=== PATIENT | female | born 1970 | race Asian ===

== ENCOUNTER 2022-08-08 11:30 | Inpatient (IN) | payer OTHER ==
[2022-08-08] MEDS ORDERED: SODIUM CHLORIDE 1,000 ML IV ONE (11:57)
[2022-08-08 12:58] LABS: BILIRUBIN,TOTAL 0.6 mg/dl (0.2-1); CALCIUM 8.8 mg/dl (8.5-10); CREATININE 0.7 mg/dl (0.55-1.3); TOT PROT 6.3 g/dl (6.4-8.2)
[2022-08-08 13:00] LABS: HEMATOCRIT 32.1 % (32.4-45.2); HEMOGLOBIN 11.4 G/dL (10.7-15.3); MCH 32.1 pg (25.7-33.7); MCHC 35.5 g/dl (32.0-36.0); MEAN CELL VOLUME 90.3 fl (80-96); MEAN PLT VOLUME 9.4 fl (7.5-11.1); PLATELET COUNT 200.1 10^3/uL (134-434); RBC 3.55 10^6/uL (3.60-5.2); RDW 13.6 % (11.6-15.6); WHITE BLOOD COUNT 5.2 10^3/uL (4.0-10.8)
[2022-08-08 14:17] LABS: PLATELET ESTIMATE ADEQUATE
[2022-08-08 14:21] LABS: EPITHELIAL CELLS FEW /hpf
[2022-08-08 15:34] LABS: CALCIUM 7.9 mg/dl (8.5-10); CREATININE 0.6 mg/dl (0.55-1.3)
[2022-08-08] MEDS ORDERED: MECLIZINE HCL 25 MG TABLET (FP) PO ONE (18:54)
[2022-08-08] MEDS ORDERED: MECLIZINE HCL 25 MG TABLET (FP) ONE (19:20)
[2022-08-08 22:23] VITALS: BMI 22.3
[2022-08-08] MEDS ORDERED: ACETAMINOPHEN 325 MG TABLET (FP) PO PRN (22:39)
[2022-08-08] MEDS ORDERED: ONDANSETRON 4 MG/2 ML VIAL IVPUSH PRN (22:44)
[2022-08-08] MEDS ORDERED: SODIUM CHLORIDE 1,000 ML IV SCH (22:45)
[2022-08-08 22:50] LABS: ERYTHROCYTE SEDIMENTATION RATE 88 mm/hr (0-30)
[2022-08-09 08:28] LABS: HEMATOCRIT 29.5 % (32.4-45.2); HEMOGLOBIN 10.4 G/dL (10.7-15.3); MCH 32.1 pg (25.7-33.7); MCHC 35.4 g/dl (32.0-36.0); MEAN CELL VOLUME 90.9 fl (80-96); MEAN PLT VOLUME 8.8 fl (7.5-11.1); PLATELET COUNT 227.3 10^3/uL (134-434); RBC 3.25 10^6/uL (3.60-5.2); RDW 13.6 % (11.6-15.6)
[2022-08-09 08:34] LABS: CALCIUM 8.4 mg/dl (8.5-10); CREATININE 0.6 mg/dl (0.55-1.3); MAGNESIUM 1.9 mg/dL (1.8-2.4); PHOSPHOROUS 3.1 mg/dl (2.5-4.9)
[2022-08-09 08:44] LABS: ACTIVATED PTT 31.5 SECONDS (25.2-36.5); INR 1.11 (0.83-1.09); PROTHROMBIN TIME (PATIENT) 12.8 SEC (9.7-13.0)
[2022-08-09] MEDS: ENOXAPARIN NA (PORCINE) 40 MG/0.4 ML DISP.SYRIN SQ SCH (09:44)
[2022-08-09] MEDS ORDERED: ROSUVASTATIN CA 40 MG TABLET PO ONE (10:17)
[2022-08-09] MEDS: CEFTRIAXONE 1 GM in DEXTROSE 5%-WATER - 50 ML IVPB SCH (10:50)
[2022-08-09] MEDS: ASPIRIN 81 MG CHEWABLE TABLETS PO SCH (10:50)
[2022-08-09 14:43] LABS: N-TERMINAL BNP 343.9 pg/ml (5-125)
[2022-08-10] MEDS: CEFTRIAXONE 1 GM in DEXTROSE 5%-WATER - 50 ML IVPB SCH (09:13)
[2022-08-10] MEDS: ENOXAPARIN NA (PORCINE) 40 MG/0.4 ML DISP.SYRIN SQ SCH (09:14)
[2022-08-10] MEDS: ASPIRIN 81 MG CHEWABLE TABLETS PO SCH (09:14)
[2022-08-10 10:49] VITALS: BP 100/60; PULSE 69; RESP 18; TEMP 98.1
[2022-08-10] MEDS ORDERED: ROSUVASTATIN CA 40 MG TABLET PO SCH (22:00)
== END 2022-08-10 11:45 | disposition home or self-care (01) | DRG 866 ==
LOC: FER 11:30 → FM/S 18:35
PROVIDERS: ADMIT Internal Medicine
DX: B34.9 Viral infection, unspecified (principal); R11.2 Nausea with vomiting, unspecified; R26.89 Other abnormalities of gait and mobility; F07.81 Postconcussional syndrome
CPT/HCPCS: 0241U-QW; 36415; 70450-TC; 70551-TC; 71045-TC-FY; 80048; 80053; 80061; 81003; 81015; 82607; 83735; 83880; 84100; 84439; 84443; 84484; 85027; 85610; 85651; 85730; 86140; 86780; 93005; 93306-TC; 93880-TC; 97116-GP; 99285-25; C9803-CS; U0003; U0005